=== PATIENT | male | born 1955 ===

== ENCOUNTER 2019-02-13 21:19 | Inpatient (IN) | payer OTHER ==
[~2019-02-13] VITALS: Ht 177.8 cm; Wt 104.6 kg
[2019-02-14 00:36] LABS: BASOPHILS ABSOLUTE AUTO 0.07 K/mm3 (0.00-0.23); BASOPHILS PERCENT AUTO 1 % (0-2); EOSINOPHILS ABSOLUTE AUTO 0.23 K/mm3 (0.00-0.68); EOSINOPHILS PERCENT AUTO 3 % (0-6); Hematocrit 42.8 % (37.0-53.0); Hemoglobin 13.7 g/dL (13.5-17.5); IMMATURE GRAN ABSOLUTE AUTO 0.03 K/mm3 (0.00-0.10); IMMATURE GRAN PERCENT AUTO 0 % (0-1); LYMPHOCYTES PERCENT AUTO 19 % (21-46); MONOCYTES ABSOLUTE AUTO 0.58 K/mm3 (0.16-1.47); MONOCYTES PERCENT AUTO 7 % (4-13); Mean Corpuscular HGB 26.7 pg (26.0-34.0); Mean Corpuscular Volume 83 fL (80-100); Mean Platelet Volume 11.4 fL (9.1-12.4); NEUTROPHILS ABSOLUTE AUTO 6.03 K/mm3 (1.96-9.15); NEUTROPHILS PERCENT AUTO 71 % (41-73); Platelet Count 281 K/mm3 (150-400); RDW Coefficient Variation 14.2 % (11.7-14.2); RDW Standard Deviation 42.6 fL (35.1-46.3); Red Blood Cell Count 5.14 M/mm3 (4.30-5.90); White Blood Cell Count 8.54 K/mm3 (4.00-11.30)
[2019-02-14 00:57] LABS: Alanine Aminotransfer (ALT/SGP 71 U/L (12-78); Albumin, Blood 3.2 g/dL (3.4-5.0); Albumin/Globulin Ratio 0.7 (0.8-1.8); Alk Phos 156 U/L (50-136); Anion Gap 7 mmol/L (6-16); Aspartate Aminotrans (AST/SGOT 33 U/L (12-37); Bilirubin, Total 0.4 mg/dL (0.1-1.0); Blood Urea Nitrogen 19 mg/dL (8-24); Bun/Creatinine Ratio 15.1 (12.0-20.0); CO2, Blood 27 mmol/L (21-32); Calcium, Blood 9.3 mg/dL (8.5-10.1); Chloride, Blood 106 mmol/L (98-108); Creatinine, Blood 1.26 mg/dL (0.60-1.20); Globulin, Blood 4.3 g/dL (2.2-4.0); Glomerular Filtration Rate >60 (60-); Glucose, Blood 234 mg/dL (70-99); Potassium, Blood 3.8 mmol/L (3.5-5.5); Sodium, Blood 140 mmol/L (136-145); Total Protein, Blood 7.5 g/dL (6.4-8.2)
[2019-02-14 01:12] LABS: Troponin I 0.607 ng/mL (0.000-0.040)
[2019-02-14 01:24] LABS: U Amphetamine Screen Not Detected; U Barbituate Screen Not Detected; U Benzodiazapine Screen Not Detected; U Buprenorphine Screen Not Detected; U Cannabinoids Screen Not Detected; U Cocaine Screen Not Detected; U Methadone Screen Not Detected; U Methamphetamine Screen Not Detected; U Opiates Screen Not Detected; U Oxycodone Screen Not Detected; U Phencyclidine Screen Not Detected; U Propoxyphene Screen Not Detected
[2019-02-14 02:30] LABS: Base Excess Venous -0.2 mmol/L; Bicarbonate Venous 24.2 mmol/L (24.0-30.0); PCO2 Venous 39.6 mmHg (38-42); PO2 Venous 68.1 mmHg (38-42)
--- NOTE | 2019-02-14 06:56 | NUR ---
PT ADMITTED TO RM 210. STOOD BEDSIDE FOR VOID OF CLEAR YELLOW URINE.LOVENOX GIVEN. CALLED FOR TELE.
[2019-02-14 09:04] LABS: Hematocrit 42.9 % (37.0-53.0); Hemoglobin 13.6 g/dL (13.5-17.5); Mean Corpuscular HGB 26.5 pg (26.0-34.0); Mean Corpuscular HGB Conc 31.7 g/dL (31.5-36.5); Mean Corpuscular Volume 84 fL (80-100); Platelet Count 271 K/mm3 (150-400); RDW Standard Deviation 42.5 fL (35.1-46.3); Red Blood Cell Count 5.14 M/mm3 (4.30-5.90); White Blood Cell Count 7.19 K/mm3 (4.00-11.30)
[2019-02-14 09:16] LABS: Alanine Aminotransfer (ALT/SGP 62 U/L (12-78); Albumin/Globulin Ratio 0.7 (0.8-1.8); Alk Phos 141 U/L (50-136); Anion Gap 7 mmol/L (6-16); Aspartate Aminotrans (AST/SGOT 21 U/L (12-37); Bilirubin, Total 0.3 mg/dL (0.1-1.0); Blood Urea Nitrogen 18 mg/dL (8-24); Bun/Creatinine Ratio 16.8 (12.0-20.0); CO2, Blood 27 mmol/L (21-32); Chloride, Blood 106 mmol/L (98-108); Creatinine, Blood 1.07 mg/dL (0.60-1.20); Globulin, Blood 4.1 g/dL (2.2-4.0); Glomerular Filtration Rate >60 (60-); Glucose, Blood 275 mg/dL (70-99); Potassium, Blood 3.9 mmol/L (3.5-5.5); Sodium, Blood 140 mmol/L (136-145); Total Protein, Blood 7.1 g/dL (6.4-8.2)
[2019-02-14 09:18] LABS: Troponin I 0.366 ng/mL (0.000-0.040)
--- NOTE | 2019-02-14 11:35 | NUR ---
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 PT HAVING SOB WHEN LYING DOWN FOR TEST, SATS 94%. O2 PLACED AT 2L/MIN FOR WORK OF BREATHING. TELE SR. DENIES CP. VSS.
[2019-02-14 12:04] LABS: CHOL/HDL RATIO 4.3; Cholesterol 152 mg/dL (50-200); HDL Cholesterol 35 mg/dL (>39); LDL/HDL RATIO 2.5; Low Density Lipoprotein Chol 88 mg/dL (0-110); Triglycerides 145 mg/dL (30-160); Very Low Density Lipoprot Chol 29 mg/dL (6-32)
--- NOTE | 2019-02-14 12:57 | NUR ---
RT: CPAP AND CONT BIOX SET UP FOR USE DURING SLEEP. PT REMAINS ON 2L O2 FOR WORK OF BREATHING. STATES BETTER AT THIS TIME.
[2019-02-14 17:07] LABS: Troponin I 0.277 ng/mL (0.000-0.040)
--- NOTE | 2019-02-14 18:15 | NUR ---
PT HAS BEEN STABLE THIS SHIFT WITH DENIAL OF CHEST PAIN. TELE SR-ST. PT HAS SOB WHEN LYING FLAT. O2 AT 2L NEEDED FOR WORK OF BREATHING. CPAP ORDERED FOR NIGHT. CONT BIOX ON. CARDIOLOGY CONSULT DONE, MEDS CHANGED AND GIVEN PER NEW ORDERS. PT UP INDEP IN ROOM. VOIDING WELL. PT DIAPHORETIC AT TIMES. TROPONINS TRENDING DOWN. BLOOD SUGARS HIGH T/O SHIFT BUT IMPROVED AT DINNER, MEDICATED WITH INSULIN ORDERED. PLAN FOR AM LABS AND FURTHER TREAMENT DIRECTED BY CARDIOLOGY.
[2019-02-15 04:18] LABS: BASOPHILS ABSOLUTE AUTO 0.06 K/mm3 (0.00-0.23); BASOPHILS PERCENT AUTO 1 % (0-2); EOSINOPHILS ABSOLUTE AUTO 0.23 K/mm3 (0.00-0.68); EOSINOPHILS PERCENT AUTO 2 % (0-6); Hematocrit 38.4 % (37.0-53.0); Hemoglobin 12.2 g/dL (13.5-17.5); IMMATURE GRAN ABSOLUTE AUTO 0.06 K/mm3 (0.00-0.10); IMMATURE GRAN PERCENT AUTO 1 % (0-1); LYMPHOCYTES ABSOLUTE AUTO 2.13 K/mm3 (0.84-5.20); LYMPHOCYTES PERCENT AUTO 19 % (21-46); MONOCYTES ABSOLUTE AUTO 0.75 K/mm3 (0.16-1.47); MONOCYTES PERCENT AUTO 7 % (4-13); Mean Corpuscular HGB 27.1 pg (26.0-34.0); Mean Corpuscular HGB Conc 31.8 g/dL (31.5-36.5); Mean Corpuscular Volume 85 fL (80-100); Mean Platelet Volume 11.5 fL (9.1-12.4); NEUTROPHILS ABSOLUTE AUTO 7.92 K/mm3 (1.96-9.15); NEUTROPHILS PERCENT AUTO 71 % (41-73); Platelet Count 285 K/mm3 (150-400); RDW Coefficient Variation 14.1 % (11.7-14.2); RDW Standard Deviation 43.6 fL (35.1-46.3); Red Blood Cell Count 4.51 M/mm3 (4.30-5.90); White Blood Cell Count 11.15 K/mm3 (4.00-11.30)
[2019-02-15 04:30] LABS: Albumin, Blood 2.7 g/dL (3.4-5.0); Anion Gap 8 mmol/L (6-16); Blood Urea Nitrogen 33 mg/dL (8-24); Bun/Creatinine Ratio 26.2 (12.0-20.0); CO2, Blood 29 mmol/L (21-32); Calcium, Blood 8.9 mg/dL (8.5-10.1); Chloride, Blood 103 mmol/L (98-108); Creatinine, Blood 1.26 mg/dL (0.60-1.20); Glomerular Filtration Rate >60 (60-); Glucose, Blood 214 mg/dL (70-99); Phosphorus, Blood 4.6 mg/dL (2.5-4.9); Potassium, Blood 3.9 mmol/L (3.5-5.5); Sodium, Blood 140 mmol/L (136-145)
--- NOTE | 2019-02-15 07:43 | NUR ---
SUMMARY NO ACUTE CHANGES THROUGH THE NIGHT. PT REMAINS A&O X4. INDEPENDENT IN THE ROOM. DENIES SOB/CP, CPAP ON WHILE SLEEPING, CONT BIOX IN PLACE, VSS. CALLS FOR ASSISTANCE NEEDED. CALL LIGHT IN REACH.
--- NOTE | 2019-02-15 18:48 | NUR ---
SHIFT SUMMARY PT A&OX4, VSS, DENIES CP OR SOB, BIOX AND CPAP AT BEDSIDE. AMB INDEPENDENT TO BRP, IN ROOM AND HALLWAY. CHARITY PO, DENIES N&V. CBGS COVERED PER EMAR. WILL REPORT OFF TO NOC RN.
[2019-02-16 04:38] LABS: Albumin, Blood 2.7 g/dL (3.4-5.0); Anion Gap 8 mmol/L (6-16); Blood Urea Nitrogen 37 mg/dL (8-24); Bun/Creatinine Ratio 31.1 (12.0-20.0); CO2, Blood 31 mmol/L (21-32); Calcium, Blood 8.6 mg/dL (8.5-10.1); Chloride, Blood 101 mmol/L (98-108); Creatinine, Blood 1.19 mg/dL (0.60-1.20); Glomerular Filtration Rate >60 (60-); Glucose, Blood 235 mg/dL (70-99); Phosphorus, Blood 3.9 mg/dL (2.5-4.9); Potassium, Blood 3.9 mmol/L (3.5-5.5); Sodium, Blood 140 mmol/L (136-145)
--- NOTE | 2019-02-16 06:28 | NUR ---
SUMMARY NO CHANGES NOTED THROUGH THE NIGHT. VSS, PT DENIES CP,SOB. ROOM AIR WHILE AWAKE, CPAP WHILE SLEEPING. CONTINUOUS BIOX IS ON. PT IS INDEPENDENT IN THE ROOM. CALL LIGHT IN REACH
--- NOTE | 2019-02-16 17:31 | NUR ---
SHIFT SUMMARY PT A&OX4, VSS, DENIES SOB OR CP, BIOX ON, CPAP BEDSIDE, TELE SINUS @ 71 BPM, CBGS COVERED PER EMAR. CHARITY PO, DENIES N&V. AMBULATES INDEPENDENTLY IN ROOM AND HALLWAY. VOIDING WELL. PLAN FOR NPO AT MIDNIGHT AND ANGIOGRAM TOMORROW. 18G RUE, FLUSHES WELL. WILL REPORT TO ONCOMING NOC RN.
--- NOTE | 2019-02-17 03:32 | NUR ---
SHIFT SUMMARY PT HAD NO ISSUES OR COMPLAINTS NOTED. PT HAS BEEN LAYING FLAT W/O SOB. PT HAS BEEN WEARING CPAP WHILE SLEEPING. PT MOVES IN BED FREQUENTLY. PT HAS BEEN NPO SINCE MIDNIGHT. PT HAS SLEPT WELL T/O SHIFT. PT CURRENTLY SLEEPING AND BREATHING EASY. CALL LIGHT IN REACH.
--- NOTE | 2019-02-17 11:10 | NUR ---
Upon receiving a referral for spiritual care, I visited patient. Patient is lying in bed and alert. Patient immediately shares that he is going in for an angiogram and that he is nervous. He asks me to pray. I gladly provide pre-surgical prayer. Patient responds well and shows signs of reduced stress. Patient voices appreciation for the visit.
--- NOTE | 2019-02-17 13:29 | NUR ---
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 WILL GIVE REPORT TO RECEIVING RN WHEN CALLED. BELONGINGS COLLECTED AND STORED AT CLASSIFIED COPY CONTROL CLERK.
[2019-02-18 06:04] LABS: HIV SCREEN 4TH GENERATION WRFX Non Reactive (Non Reactive)
== END 2019-02-17 16:54 | disposition short-term general hospital (02) | DRG 280 ==
LOC: ER 21:19 → SURS 02-14 05:45 → PCU 02-17 14:04
PROVIDERS: Emergency Medicine; Family Medicine; Internal Medicine; ADMIT Internal Medicine
PROC: B2111ZZ Fluoroscopy of Multiple Coronary Arteries using Low Osmolar Contrast (ICD-10-PCS; principal; 2019-02-17)
PROC: 4A023N7 Measurement of Cardiac Sampling and Pressure, Left Heart, Percutaneous Approach (ICD-10-PCS; 2019-02-17)
DX: I11.0 Hypertensive heart disease with heart failure (principal); I50.21 Acute systolic (congestive) heart failure; I21.4 Non-ST elevation (NSTEMI) myocardial infarction; N17.9 Acute kidney failure, unspecified; Z68.31 Body mass index [BMI] 31.0-31.9, adult; E11.9 Type 2 diabetes mellitus without complications; I34.0 Nonrheumatic mitral (valve) insufficiency; E66.9 Obesity, unspecified
CPT/HCPCS: 36415; 71046; 71260; 80053; 80061; 80069; 82550; 82803; 82947; 83605; 83880; 84484; 85025; 85027; 85347; 87389; 93005; 93010; 93306; 93458; 94660; 94762; 96374; 96375; 99152; 99153; 99285-25; A9270; C1769; C1894; C8929; J1644; J1650; J1940; J2060; J2250; J2930; J3010; J7030; Q9957; Q9967